=== PATIENT | male | born 1990 | race Caucasian/White ===

== ENCOUNTER 2025-06-17 06:39 | Emergency (ER) | payer OTHER ==
[~2025-06-17] VITALS: Ht 175.3 cm; Wt 77.1 kg
[2025-06-17 06:56] VITALS: BP 116/72; TEMP 98.2; O2SAT 96
[2025-06-17] MEDS ORDERED: TETRAcaine 5 ML BOTTLE ONE (07:18)
[2025-06-17] MEDS ORDERED: FLUORESCEIN SODIUM OPHTH 1 EA STRIP ONE (07:18)
[2025-06-17] MEDS ORDERED: OFLO5DRO6 RIGHTEYE (07:28)
[2025-06-17] MEDS: FLUORESCEIN SODIUM OPHTH 1 EA STRIP OP ONE (07:55)
== END 2025-06-17 07:55 | disposition home or self-care (01) ==
LOC: ER 06:45
DX: H10.33 Unspecified acute conjunctivitis, bilateral (principal); Z88.0 Allergy status to penicillin; Z88.1 Allergy status to other antibiotic agents

== ENCOUNTER 2025-09-03 01:50 | Emergency (ER) | payer OTHER ==
[~2025-09-03] VITALS: Ht 180.3 cm; Wt 74.8 kg
[~2025-09-03 01:50] MED LIST: OFLO5DRO6 RIGHTEYE
[2025-09-03] MEDS ORDERED: AZITHROMYCIN 250 MG TABLET ONE (02:41)
[2025-09-03] MEDS ORDERED: DOXYCYCLINE HYCLATE (100 MG) 100 MG TABLET ONE (02:42)
[2025-09-03] MEDS ORDERED: METRONIDAZOLE 500 MG TABLET ONE (02:42)
[2025-09-03] MEDS ORDERED: LAMIVUDINE/ZIDOVUDINE 150-300 1 TAB TABLET ONE (02:42)
[2025-09-03] MEDS: LAMIVUDINE/ZIDOVUDINE 150-300 1 TAB TABLET PO ONE (02:43)
[2025-09-03] MEDS: AZITHROMYCIN 250 MG TABLET PO ONE (02:43)
[2025-09-03] MEDS: DOXYCYCLINE HYCLATE (100 MG) 100 MG TABLET PO ONE (02:43)
[2025-09-03] MEDS: METRONIDAZOLE 500 MG TABLET PO ONE (02:43)
[2025-09-03] MEDS ORDERED: EMTR1TAB12 PO (02:53)
[2025-09-03] MEDS ORDERED: LAMI1TAB PO (02:53)
[2025-09-03] MEDS ORDERED: RALT400T PO (02:53)
[2025-09-03] MEDS ORDERED: RALTEGRAVIR POTASSIUM 400 MG TABLET PO ONE (02:53)
[2025-09-03] MEDS ORDERED: EMTRICITABINE/TENOFOVIR 1 TAB ONE (02:53)
[2025-09-03] MEDS: RALTEGRAVIR POTASSIUM 400 MG TABLET PO ONE (02:55)
[2025-09-03] MEDS: EMTRICITABINE/TENOFOVIR 1 TAB PO ONE (02:55)
[2025-09-03 03:05] LABS: APPEARANCE,URINE CLEAR (CLEAR); BLOOD, URINE NEGATIVE Ery/uL (NEGATIVE); LEUKOCYTE ESTERASE ,URINE NEGATIVE (NEGATIVE); NITRITE, URINE NEGATIVE (NEGATIVE); UGLUCOSE NEGATIVE (NEGATIVE)
[2025-09-03 03:30] VITALS: BP 126/77; TEMP 98.4; O2SAT 99
[2025-09-04 06:23] LABS: HIV-1/2 ANTIBODY NON REACTIVE (NONREACTIVE)
[2025-09-06 09:10] LABS: CHLAMYDIA TRACHOMATIS NAA Negative (Negative); NEISSERIA GONORRHOEAE NAA Negative (Negative)
== END 2025-09-03 03:31 | disposition home or self-care (01) ==
LOC: ER 01:57
DX: Z11.3 Encounter for screening for infections with a predominantly sexual mode of transmission (principal); Z79.624 Long term (current) use of inhibitors of nucleotide synthesis; Z88.0 Allergy status to penicillin; Z88.1 Allergy status to other antibiotic agents; Z60.2 Problems related to living alone
CPT/HCPCS: 36415; 87491; 87591; 87806